=== PATIENT | male | born 1975 | race Caucasian/White ===

== ENCOUNTER 2020-05-24 09:26 | Outpatient (REF) | payer OTHER, SELFPAY ==
[2020-05-24 09:41] LABS: MANUAL DIFF FLAG NO
[2020-05-24 09:42] LABS: Basophils Absolute Auto 0.1 X10*3/uL (0.0-0.2); Basophils Percent Auto 0.8 % (0-2); Eosinophils Absolute Auto 0.3 X10*3/uL (0.0-0.4); Eosinophils Percent Auto 4.1 % (0-4); Hematocrit 40.3 % (42-52); Hemoglobin 13.5 g/dl (14.0-18.0); Imm Gran Abs Auto 0.01 X10*3/uL (0.00-0.03); Imm Gran Pct Auto 0.2 % (0.0-0.4); Lymphocytes Absolute Auto 1.1 X10*3/uL (1.2-4.9); Lymphocytes Percent Auto 17.5 % (20-40); Mean Corpuscular HGB Conc 33.5 g/dl (31.0-36.0); Mean Corpuscular Hemoglobin 29.9 pg (27.0-33.0); Mean Corpuscular Volume 89.2 fL (80-98); Mean Platelet Volume 11.7 fL (9.4-12.4); Monocytes Absolute Auto 0.6 X10*3/uL (0.1-1.2); Monocytes Percent Auto 9.9 % (2-11); Neutrophils Absolute Auto 4.1 X10*3/uL (2.0-8.3); Neutrophils Percent Auto 67.5 % (45-73); Platelet Count 198 X10*3/uL (160-400); Red Blood Count 4.52 X10*6/uL (4.60-5.80); Red Cell Distribution Width 14.1 % (11.0-16.0); White Blood Count 6.1 X10*3/uL (4.8-10.8)
[2020-05-24 13:18] LABS: Ferritin 20 ng/mL (20-250)
== END 2020-05-24 09:27 | disposition home or self-care (01) ==
LOC: HO.BBR 09:26
PROVIDERS: Visit Provider Internal Medicine Hematology & Oncology
DX: E83.110 Hereditary hemochromatosis (principal)
CPT/HCPCS: 36415; 82728; 85025

== ENCOUNTER 2020-05-24 11:14 | Outpatient (REF) | payer SELFPAY ==
[2020-05-24 17:53] LABS: Blood Donor Cholesterol 194
== END 2020-05-24 11:15 | disposition home or self-care (01) ==
LOC: HO.LNC 11:14
PROVIDERS: Visit Provider Pathology Anatomic Pathology & Clinical Pathology
DX: Z01.83 Encounter for blood typing (principal)
CPT/HCPCS: 82465